=== PATIENT | female | born 1935 | race Caucasian/White ===

== ENCOUNTER 2017-05-28 07:38 | Outpatient (CLI) | payer OTHER ==
[~2017-05-28 07:38] MED LIST: CARVEDILOL6.25 MG; HYZAAR 100-251 EACH; LANTUS SOL100 UNIT/1; SYNTHROID50 MCG
== END 2017-05-28 07:46 | disposition home or self-care (01) ==
LOC: NUCLEAR 07:38
DX: C25.9 Malignant neoplasm of pancreas, unspecified (principal)
CPT/HCPCS: 78815; A9552

== ENCOUNTER 2017-06-01 10:07 | Outpatient (CLI) | payer OTHER | END 2017-06-01 11:00 | disposition home or self-care (01) | LOC: NUCLEAR 10:07 | DX: I87.2 Venous insufficiency (chronic) (peripheral) (principal) ==

== ENCOUNTER 2017-10-18 15:09 | Outpatient (CLI) | payer OTHER | END 2017-10-18 15:16 | disposition home or self-care (01) | LOC: NUCLEAR 15:09 | DX: I87.2 Venous insufficiency (chronic) (peripheral) (principal) ==